=== PATIENT | male | born 2000 | race Caucasian/White ===

== ENCOUNTER 2024-04-21 03:06 | Emergency (ER) | payer MEDICAID ==
[~2024-04-21] VITALS: Ht 170.2 cm; Wt 95.3 kg
[2024-04-21 03:14] VITALS: BP_SYST 115; PULSE 130; RESP 18; TEMP 99.1; O2SAT 95
[2024-04-21] MEDS: EPINEPHRINE HCL/PF 1 MG/ML AMP SUBCUT ONE (03:34)
[2024-04-21] MEDS: DIPHENHYDRAMINE INJ 50 MG/ML VIAL IM ONE (03:41)
[2024-04-21] MEDS: methylPREDNISolone SOD SUCC/PF 62.5 MG/ML VIAL IM ONE (03:41)
[2024-04-21] MEDS ORDERED: METH-776 PO (04:14)
[2024-04-21] MEDS ORDERED: FEXO180T94 PO (04:14)
[2024-04-21 04:20] VITALS: BP_SYST 140; PULSE 120; RESP 18; TEMP 99.1; O2SAT 95
== END 2024-04-21 04:15 | disposition home or self-care (01) ==
LOC: SED 03:06
DX: L50.9 Urticaria, unspecified (principal); T78.40XA Allergy, unspecified, initial encounter; Z79.899 Other long term (current) drug therapy; Z79.2 Long term (current) use of antibiotics; X58.XXXA Exposure to other specified factors, initial encounter
CPT/HCPCS: 99284; 96372; J1200; J0171; J2930